=== PATIENT | female | born 1955 | race Hispanic/Latino ===

== ENCOUNTER 2017-09-01 14:14 | Emergency (ER) | payer SELFPAY ==
[2017-09-01] MEDS ORDERED: ISOVUE-370 76%-LOCM 1 ML ONE (14:17)
--- NOTE | 2017-09-01 14:58 | RAD ---
CHEST 1 VIEW: HISTORY: Dyspnea. COMPARISON: Chest 1 view 08/29/13. FINDINGS: Lungs are clear. No pneumothorax or effusion. Cardiac silhouette and mediastinal contours are withi n normal limits. IMPRESSION: No acute intrathoracic abnormality. POS: [facility]
[2017-09-01 15:27] LABS: #Basophils 0.1 thou/uL (0.0-0.2); #Eosinphils 0.2 thou/uL (0.0-0.7); #Lymphocytes 1.6 thou/uL (1.20-3.40); #Monocytes 0.6 thou/uL (0.11-0.59); #Neutrophils 4.4 thou/uL (1.40-6.50); %Basophils 0.9 % (0.0-1.0); %Eosinophils 2.7 % (0.0-10.0); %Monocytes 8.1 % (0.0-10.0); %Neutrophils 65.3 % (42.0-75.0); Hemoglobin 12.8 g/dL (12.0-16.0); Mean Corpuscular HGB CONC 33.3 g/dL (32.0-36.0); Mean Corpuscular Hemoglobin 30.2 pg (27.0-31.0); Mean Corpuscular Volume 90.7 fl (81.0-99.0); Platelet Count 218 thou/uL (130-400); RBC Distribution Width 11.7 % (11.5-14.5); Red Blood Cell (RBC) Count 4.22 mill/uL (4.20-5.40); White Blood Cell (WBC) Count 6.8 thou/uL (4.8-10.8)
[2017-09-01 15:48] LABS: ALT (SGPT) 19 U/L (8-55); AST (SGOT) 17 U/L (5-34); Albumin 4.5 g/dL (3.5-5.0); Alkaline Phosphatase 109 U/L (40-150); Anion Gap 11 mmol/L (10-20); BUN (Urea Nitrogen) 18 mg/dL (9.8-20.1); Bilirubin, Total 0.6 mg/dL (0.2-1.2); CK (CPK) 98 U/L (29-168); Calc. Creatinine Clearance 0 mL/min (70-130); Calcium 9.8 mg/dL (7.8-10.44); Carbon Dioxide 28 mmol/L (22-29); Chloride 106 mmol/L (98-107); Estimated GFR-MDRD 83; Globulin 2.7 g/dL (2.4-3.5); Glucose 95 mg/dL (70-105); Potassium 3.7 mmol/L (3.5-5.1); Protein, Total 7.2 g/dL (6.0-8.3); Sodium 141 mmol/L (136-145)
[2017-09-01] MEDS ORDERED: Ondansetron HCl/PF 4 MG/2 ML Vial ONE (15:49)
[2017-09-01] MEDS ORDERED: Famotidine/PF 20 mg/2ml Vial ONE (15:50)
[2017-09-01 15:53] LABS: CKMB 1.5 ng/mL (0-6.6); Troponin I Less than 0.010 ng/mL (< 0.028)
[2017-09-01 16:43] LABS: Bilirubin Negative (Negative); Blood, Urine Negative (Negative); Clarity CLEAR (Clear); Glucose, Urine (Dipstick) Negative (Negative); Leukocyte Negative (Negative); Nitrite Negative (Negative); Protein, Urine (Dipstick) Negative (Neg-Trace); Specific Gravity, Urine 1.041 (1.002-1.036)
--- NOTE | 2017-09-01 17:09 | CT ---
CT ABDOMEN AND PELVIS WITH CONTRAST 09/01/17 HISTORY: Abdominal pain. Epigastric abdominal pain. COMPARISON: None. FINDINGS: There is some linear atelectasis in the left lower lobe. No pericardial effusion. There are innumerable hypodensities all sub 5 mm throughout the liver. Portal vein is patent. fatty a trophy of the pancreatic head an body. The aortoiliac contour is normal. No dilated loops of large or small bowel. Moderate diverticular disease of the sigmoid colon without active inflammation. The appendix is visualized and is normal. No significant adenopathy. No free intraperitoneal gas or fluid. Small ileocolic lymph nodes present. Celiac trunk and superior mesenteric arteries are both patent. The spleen is small. There is a hypodensity posterior cortex interpolar left kidney measuring greater than fluid attenuati on, although may be due to volume averaging. There is also too small to characterize 4 mm hypodensity interpolar right kidney. IMPRESSION: 1. Innumerable hypodensities of the liver without significant peripheral enhancement. No solid e nhancing mass. 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 Hepatic microabscesse s and metastasis are also within the differential though felt less likely given patient history. Anthony mmend clinical correlation. 2. Mild fatty atrophy of the pancreatic head and body. 3. Normal appendix. POS: [facility]
== END 2017-09-01 17:31 | disposition home or self-care (01) ==
LOC: ERS 14:14
DX: R10.13 Epigastric pain (principal)
CPT/HCPCS: 36415; 71045; 74177; 80053; 81003; 82550; 82553; 84484; 85025; 87086; 93005; 96361; 96372; 96374; 96375; J2405; S0028

== ENCOUNTER 2017-09-04 13:55 | Emergency (ER) | payer SELFPAY ==
[2017-09-04 15:49] LABS: #Basophils 0.1 thou/uL (0.0-0.2); #Eosinphils 0.2 thou/uL (0.0-0.7); #Lymphocytes 1.7 thou/uL (1.20-3.40); #Monocytes 0.4 thou/uL (0.11-0.59); #Neutrophils 3.3 thou/uL (1.40-6.50); %Basophils 0.9 % (0.0-1.0); %Eosinophils 3.4 % (0.0-10.0); %Monocytes 7.1 % (0.0-10.0); %Neutrophils 58.6 % (42.0-75.0); Hemoglobin 12.8 g/dL (12.0-16.0); Mean Corpuscular HGB CONC 33.7 g/dL (32.0-36.0); Mean Corpuscular Hemoglobin 30.6 pg (27.0-31.0); Mean Corpuscular Volume 90.8 fl (81.0-99.0); Platelet Count 223 thou/uL (130-400); RBC Distribution Width 11.8 % (11.5-14.5); Red Blood Cell (RBC) Count 4.17 mill/uL (4.20-5.40); White Blood Cell (WBC) Count 5.6 thou/uL (4.8-10.8)
[2017-09-04 16:09] LABS: ALT (SGPT) 23 U/L (8-55); AST (SGOT) 26 U/L (5-34); Albumin 4.6 g/dL (3.5-5.0); Alkaline Phosphatase 104 U/L (40-150); Anion Gap 12 mmol/L (10-20); BUN (Urea Nitrogen) 17 mg/dL (9.8-20.1); Bilirubin, Total 0.5 mg/dL (0.2-1.2); Calc. Creatinine Clearance 0 mL/min (70-130); Calcium 9.9 mg/dL (7.8-10.44); Carbon Dioxide 25 mmol/L (22-29); Chloride 106 mmol/L (98-107); Estimated GFR-MDRD Greater than 90; Globulin 3.1 g/dL (2.4-3.5); Glucose 91 mg/dL (70-105); Potassium 3.8 mmol/L (3.5-5.1); Protein, Total 7.7 g/dL (6.0-8.3); Sodium 139 mmol/L (136-145)
== END 2017-09-04 17:50 | disposition home or self-care (01) ==
LOC: ERS 13:55
DX: R10.9 Unspecified abdominal pain (principal); F41.9 Anxiety disorder, unspecified
CPT/HCPCS: 36415; 80053; 83605; 83690; 85025; 87040; 99284

== ENCOUNTER 2017-09-18 10:43 | Outpatient (CLI) | payer SELFPAY ==
--- NOTE | 2017-09-25 14:20 | MMO ---
BILATERAL SCREENING MAMMOGRAM: Date: 09/18/17 INDICATION: Annual exam. COMPARISON: Prior exam dated 02/04/13. FINDINGS: Interpretation of this exam was assisted with computer-aided detection. The breast parenchyma is heterogeneously dense, which limits the sensitivity of mammography. No new suspicious mass, cluster of microcalcifications, or area of architectural distortion is eviden t. IMPRESSION: BIRADS 1: Negative Recommend routine annual mammographic screening. POS: [facility]
== END 2017-09-18 10:44 | disposition home or self-care (01) ==
LOC: SCSMAMMO 10:43
PROVIDERS: ATTEND Family Medicine
DX: Z12.31 Encounter for screening mammogram for malignant neoplasm of breast (principal)
CPT/HCPCS: 77067

== ENCOUNTER 2021-08-31 11:38 | Outpatient (CLI) | payer OTHER | END 2021-08-31 11:39 | disposition home or self-care (01) | LOC: BICRAD 11:38 | PROVIDERS: ATTEND Physician Assistant | DX: R05.9 Cough, unspecified (principal) | CPT/HCPCS: 71046 ==

== ENCOUNTER 2023-03-23 23:19 | Emergency (ER) | payer MEDICARE ==
[2023-03-24 00:19] LABS: #Basophils 0.1 thou/uL (0.0-0.2); #Eosinphils 0.3 thou/uL (0.0-0.7); #Monocytes 0.6 thou/uL (0.11-0.59); #Neutrophils 3.1 thou/uL (1.40-6.50); %Basophils 1.3 % (0.0-1.0); %Eosinophils 4.5 % (0.0-10.0); %Lymphocytes 34.7 % (21.0-51.0); %Monocytes 9.2 % (0.0-10.0); %Neutrophils 49.8 % (42.0-75.0); Hematocrit 39.4 % (36.0-47.0); Hemoglobin 13.2 g/dL (12.0-16.0); Mean Corpuscular HGB CONC 33.5 g/dL (32.0-36.0); Mean Corpuscular Hemoglobin 29.3 pg (27.0-31.0); Mean Corpuscular Volume 87.6 fl (78.0-98.0); Platelet Count 221 10x3/uL (130-400); RBC Distribution Width 12.4 % (11.5-14.5); White Blood Cell (WBC) Count 6.2 10x3/uL (4.8-10.8)
[2023-03-24 00:43] LABS: ALT (SGPT) 21 U/L (8-55); AST (SGOT) 25 U/L (5-34); Albumin 4.4 g/dL (3.4-4.8); Alkaline Phosphatase 139 U/L (40-110); Anion Gap 14 mmol/L (10-20); BUN (Urea Nitrogen) 17 mg/dL (9.8-20.1); Bilirubin, Total 0.3 mg/dL (0.2-1.2); Calc. Creatinine Clearance 0 mL/min (70-130); Calcium 9.8 mg/dL (7.8-10.44); Carbon Dioxide 24 mmol/L (23-31); Chloride 107 mmol/L (98-107); Estimated GFR 90; Globulin 3.4 g/dL (2.4-3.5); Glucose 119 mg/dL (80-115); Potassium 3.7 mmol/L (3.5-5.1); Protein, Total 7.8 g/dL (5.8-8.1); Sodium 141 mmol/L (136-145)
[2023-03-24 00:47] LABS: Troponin I Less than 0.010 ng/mL (< 0.028)
== END 2023-03-24 01:10 | disposition home or self-care (01) ==
LOC: ERS 23:19
DX: I10 Essential (primary) hypertension (principal)
CPT/HCPCS: 71045; 80053; 83880; 84484; 85025; 93005

== ENCOUNTER 2023-08-06 18:13 | Emergency (ER) | payer MEDICARE ==
[2023-08-06 20:12] LABS: SARS-CoV-2 NAA Rapid Test DETECTED (NotDetected)
[2023-08-06] MEDS ORDERED: predniSONE 20 MG TAB ONE (20:26)
== END 2023-08-06 20:37 | disposition home or self-care (01) ==
LOC: ERS 18:13
DX: U07.1 COVID-19 (principal); I10 Essential (primary) hypertension; E78.5 Hyperlipidemia, unspecified; Z79.899 Other long term (current) drug therapy
CPT/HCPCS: 0240U; 71045; J7512

== ENCOUNTER 2024-07-26 09:20 | Outpatient (CLI) | payer OTHER ==
[2024-07-26] MEDS ORDERED: Barium Sulfate 96% 176 GM BOT (xray ONLY) ONE (09:41)
[2024-07-26] MEDS ORDERED: E-Z-HD 98% W/W 340GM BOT (x-ray ONLY) ONE (09:41)
== END 2024-07-26 09:21 | disposition home or self-care (01) ==
LOC: RAD 09:20
PROVIDERS: ATTEND Family Medicine
DX: R13.12 Dysphagia, oropharyngeal phase (principal)
CPT/HCPCS: 74220